=== PATIENT | male | born 1980 | race Caucasian/White ===

== ENCOUNTER 2017-06-20 05:11 | Emergency (ER) | payer BC, OTHER ==
[~2017-06-20] VITALS: Ht 172.7 cm; Wt 96.5 kg
[2017-06-20 05:18] VITALS: O2SAT 98
[2017-06-20 05:19] VITALS: TEMP 36.7; Ht 172.7 cm; Wt 96.5 kg
[2017-06-20] MEDS ORDERED: KETOROLAC TROMETHAMINE 30 MG/ML VIAL IV STA (05:36)
[2017-06-20 05:49] LABS: BASO % 0.3 %; BASO ABS # 0.02 K/uL (0-0.2); COMPLETE YES; EOS % 1.4 %; HEMATOCRIT 46.8 % (42-52); IG% 0.3 %; LYMPH % 22.7 %; LYMPH ABS # 1.75 K/uL (1.2-3.4); MEAN CELL VOLUME 85.2 fL (80-100); MEAN CORPUSCULAR HEMOGLOBIN 31.1 pg (25-34); MEAN CORPUSCULAR HGB CONC 36.5 g/dl (32-36); MONO % 12.7 %; NEUT % 62.6 %; PLATELET COUNT 251 K/uL (130-400); RED BLOOD COUNT 5.49 M/uL (4.7-6.1); WHITE BLOOD COUNT 7.72 K/uL (4.8-10.8)
[2017-06-20] MEDS ORDERED: IBUP-1050 PO (05:54)
--- NOTE | 2017-06-20 05:55 | EMERGENCY ROOM VISIT NOTE ---
History Report prepared by Adolfo: Lesley Lundberg Under the Supervision of: Dr. Annalise De Oliveira D.O. First contact with patient: 05:15 Chief Complaint: CHEST PAIN Stated Complaint: SHARP PAIN IN CHEST,CLAVICAL,RIGHTSIDE BK,TING History of Present Illness The patient is a 37 year old male who presents to the Emergency Room with complaints of constant chest pain beginning yesterday. The patient states that yesterday he had a sharp pain in the right side of his chest along his rib cage. He reports that he drove up here from [place] today and this afternoon he began having sharp pains in his clavicle area and right shoulder that radiated to his back. He complains of arm tingling and notes that standing alleviates some of his pain. The patient denies an shortness of breath, nausea, vomiting, cough, sore throat, fever, nausea, and vomiting, diarrhea. He reports a history of hypertension and states that he was on Lisinopril for 2 years and took himself off of it 3 weeks ago. The patient states that he has not changed his workout. Source of History: patient Onset: yesterday Position: chest Quality: sharp Timing: constant Associated Symptoms: + back pain, No fevers, No sorethroat, No cough, No SOB , No nausea, No vomiting, No diarrhea Note: Pt complains of arm tingling and clavicle pain. Review of Systems See HPI for pertinent positives & negatives. A total of 10 systems reviewed and were otherwise negative. Past Medical & Surgical Medical Problems: (1) HTN (hypertension) (2) No chronic problems Family History No pertinent family history stated. Social History Marital Status: single Occupation Status: employed Current/Historical Medications Scheduled PRN Ibuprofen (Advil), 400-800 MG PO Q6H PRN for Pain Allergies Coded Allergies: No Known Allergies (Verified , 06/20/17) Physical Exam Vital Signs Date Time Temp Pulse Resp B/P (MAP) Pulse Ox O2 Delivery O2 Flow Rate FiO2 06/20/17 06:25 76 18 141/88 96 06/20/17 05:41 90 22 97 Room Air 06/20/17 05:31 162/89 06/20/17 05:29 170/97 06/20/17 05:23 93 06/20/17 05:19 36.7 90 22 170/97 98 Room Air 06/20/17 05:19 170/97 06/20/17 05:19 98 Room Air 06/20/17 05:18 98 Room Air Physical Exam General: Appears uncomfortable with any type of movement. HEENT: Head - normocephalic and atraumatic Pupils are equal, round, and reactive to light. Extraocular eye muscles are intact, and sclera are anicteric. Nose - moist nasal mucosa without discharge. Mouth - moist buccal mucosa. Oropharynx is nonerythematous and there is no tonsillar exudate or edema noted. Neck: Supple; no JVD, nuchal rigidity, cervical lymphadenopathy, or auscultated bruits. Heart: Regular rate and rhythm. There is a normal S1 and S2 with no murmurs, clicks, or gallops appreciated. Lungs: Clear to auscultation bilaterally with no wheezes, rales, or rhonchi. Chest: Exquisite tenderness on right clavicle and right superior lateral pectoralis muscle. There was no skin changes or erythema noted about the clavicle. Back: Exquisite tenderness to the right sided thoracic paraspinous muscles just inferior to the scapula. Abdomen: Soft, completely nontender, nondistended, with good bowel sounds. There are no palpable pulsatile masses or hepatosplenomegaly. There is no guarding, rigidity, or rebound noted. Extremities: No evidence of cyanosis, clubbing, or edema. There are easily palpable peripheral pulses. Skin: warm and dry with good turgor and no rashes. Medical Decision & Procedures ER Provider Diagnostic Interpretation: X-ray results as stated below per interpretation by me: Chest X-Ray: No cardiomegaly, no mediastinum, no pulmonary infiltrate. Laboratory Results 06/20/17 05:30 Red Blood Count 5.49, Mean Corpuscular Volume 85.2, Mean Corpuscular Hemoglobin 31.1, Mean Corpuscular Hemoglobin Concent 36.5, Mean Platelet Volume 9.0, Neutrophils (%) (Auto) 62.6, Lymphocytes (%) (Auto) 22.7, Monocytes (%) (Auto) 12.7, Eosinophils (%) (Auto) 1.4, Basophils (%) (Auto) 0.3, Neutrophils # (Auto ) 4.84, Lymphocytes # (Auto) 1.75, Monocytes # (Auto) 0.98, Eosinophils # (Auto ) 0.11, Basophils # (Auto) 0.02 06/20/17 05:30 Test 06/20/17 05:30 06/20/17 07:07 White Blood Count 7.72 K/uL (4.8-10.8) Red Blood Count 5.49 M/uL (4.7-6.1) Hemoglobin 17.1 g/dL (14.0-18.0) Hematocrit 46.8 % (42-52) Mean Corpuscular Volume 85.2 fL (80-100) Mean Corpuscular Hemoglobin 31.1 pg (25-34) Mean Corpuscular Hemoglobin Concent 36.5 g/dl (32-36) Platelet Count 251 K/uL (130-400) Mean Platelet Volume 9.0 fL (7.4-10.4) Neutrophils (%) (Auto) 62.6 % Lymphocytes (%) (Auto) 22.7 % Monocytes (%) (Auto) 12.7 % Eosinophils (%) (Auto) 1.4 % Basophils (%) (Auto) 0.3 % Neutrophils # (Auto) 4.84 K/uL (1.4-6.5) Lymphocytes # (Auto) 1.75 K/uL (1.2-3.4) Monocytes # (Auto) 0.98 K/uL (0.11-0.59) Eosinophils # (Auto) 0.11 K/uL (0-0.5) Basophils # (Auto) 0.02 K/uL (0-0.2) RDW Standard Deviation 38.3 fL (36.4-46.3) RDW Coefficient of Variation 12.5 % (11.5-14.5) Immature Granulocyte % (Auto) 0.3 % Immature Granulocyte # (Auto) 0.02 K/uL (0.00-0.02) Anion Gap 9.0 mmol/L (3-11) Est Creatinine Clear Calc Drug Dose 78.3 ml/min Estimated GFR () 70.9 Estimated GFR (Non- 61.2 BUN/Creatinine Ratio 13.2 (10-20) Calcium Level 9.0 mg/dl (8.5-10.1) Total Bilirubin 1.3 mg/dl (0.2-1) Direct Bilirubin 0.2 mg/dl (0-0.2) Aspartate Amino Transf (AST/SGOT) 34 U/L (15-37) Alanine Aminotransferase (ALT/SGPT) 55 U/L (12-78) Alkaline Phosphatase 76 U/L (45-117) Total Protein 7.6 gm/dl (6.4-8.2) Albumin 4.1 gm/dl (3.4-5.0) Bedside Troponin I 0.030 ng/ml (0-0.045) Laboratory results per my review. Medications Administered Medications (Trade) Dose Ordered Sig/Adam Route Start Time Stop Time Status Last Admin Dose Admin Ketorolac Tromethamine (Toradol Inj) 30 mg NOW STAT IV 06/20/17 05:36 06/20/17 05:37 DC 06/20/17 05:44 30 MG Procedure 0536: Toradol Inj 30mg IV. ECG Indication: chest pain Rate (beats per minute): 86 Rhythm: normal sinus Findings: T-wave inversion (Lead 3 and AVF) ED Course 0515: Past medical records reviewed. The patient was evaluated in room B2. A complete history and physical exam was performed. A twelve-lead EKG was obtained as described above. 0536: Toradol Inj 30mg IV. Patient had chest x-ray which was unremarkable. 0625: I updated the patient and reviewed elevated creatinine and sugar. He will follow up with his doctor. His blood pressure came down to 144/88. He is chest pain-free at this time. 0726: I reevaluated and updated the patient. He feels better. We had a discussion about PE and he confirmed that his symptoms started prior to the car ride and he is not short of breath. 0745: Upon reevaluation, the patient is doing well. I discussed findings and results with the patient. He verbalized agreement of the treatment plan. The patient was discharged home. Medical Decision The patient is a 37 year old male who presents to the ED with chest pain. Differential diagnosis includes musculoskeletal strain, costochondritis, pleurisy, PE, pneumonia. LAB: WBC 7.7 Stable H&H Pointed Care Troponin 0.030 BUN 19 Creatinine 1.4 Glucose 144 LFTs are Normal Repeat Troponin is 0.030 This is a 37-year-old male patient who presents to the emergency department with right-sided chest pain and right upper back pain for the past 48 hours. The patient describes noticing some discomfort in the right lateral pectoralis muscle 2 days ago. The pain seemed to worsen and localized more in his right clavicle and beneath his right scapula. The patient then drove from [place] to here and had significant discomfort while driving. He explains that standing up would make the pain better but any significant movement of the upper extremity or upper body would cause more severe pain. The patient does lift weights but denies doing anything excessive that could have caused this injury. We discussed the possibility of PE as related to this recent lengthy car drive but noted that his symptoms started [address] before [address] car drive. He had no associated shortness of breath, tachycardia or hypoxia. We performed an EKG here in the emergency room. There was some T-wave inversion noted in leads 3 and aVF with no reciprocal changes or ST segment elevation. We made multiple attempts at obtaining a comparison EKG from [facility] in [facility]. This was unsuccessful. The patient states that he been told that his EKG was abnormal in the past. I do not suspect that his presentation is cardiac related as his symptoms are clearly reproducible and worsened/ relieved with position. The patient got moderate relief of his discomfort with IV Toradol. He was encouraged to limit any strenuous activity over the next 3- 5 days and take NSAIDs. He was told to return to the emergency department if he developed any worsening symptoms, especially shortness of breath. The patient was noted to have a slightly elevated creatinine as well as mild hyperglycemia. He will need follow-up with his PCP for a repeat creatinine and a fasting blood sugar. The patient has a history of hypertension but stopped taking his lisinopril approximately 3 weeks ago. I encouraged him to restart that medicine. Medication Reconcilliation Current Medication List: was personally reviewed by me Blood Pressure Screening Patient's blood pressure: Elevated blood pressure Blood pressure disposition: Referred to PCP Impression Primary Impression: Right-sided chest wall pain Additional Impression: Hyperglycemia Scribe Attestation The scribe's documentation has been prepared under my direction and personally reviewed by me in its entirety. I confirm that the note above accurately reflects all work, treatment, procedures, and medical decision making performed by me. Departure Information Dispostion Home / Self-Care Referrals No Doctor, Assigned (PCP) Forms Call Back Authorization, HOME CARE DOCUMENTATION FORM, IMPORTANT VISIT INFORMATION Patient Instructions ED Chest Pain Costochondrgabriel, [facility] Additional Instructions Rest. Avoid any strenuous activity for next 3-5 days. Motrin - 800mg every 6-8 hours for pain. Follow up with PCP for fasting blood sugar and repeat creatinine testing. Problem Qualifiers
[2017-06-20 06:07] LABS: BUN/CREATININE RATIO 13.2 (10-20); CREATININE 1.44 mg/dl (0.60-1.40); POTASSIUM 3.4 mmol/L (3.5-5.1)
--- NOTE | 2017-06-20 06:38 | DIAGNOSTIC IMAGING REPORT ---
CHEST 2 VIEWS ROUTINE HISTORY: 37 years-old Male right sided chest pain acute atypical right-sided chest pain COMPARISON: None available TECHNIQUE: PA and lateral views of the chest FINDINGS: Cardiomediastinal and hilar silhouettes are within normal limits. No pneumothorax, pleural effusion, focal airspace consolidation or overt pulmonary edema. The bones of the chest appear grossly intact. IMPRESSION: No acute process. The above report was generated using voice recognition software. It may contain grammatical, syntax or spelling errors. Electronically signed by: Ricardo Amato M.D. 06/20/2017 6:37 AM Dictated Date/Time: 06/20/2017 6:37 AM
[2017-06-20 07:44] VITALS: BP 132/95; PULSE 73; O2SAT 97
== END 2017-06-20 08:06 | disposition home or self-care (01) ==
LOC: C.EDB 05:13
DX: R07.89 Other chest pain (principal); M25.511 Pain in right shoulder; R73.9 Hyperglycemia, unspecified; I10 Essential (primary) hypertension